=== PATIENT | female | born 1965 | race Hispanic/Latino ===

== ENCOUNTER 2017-01-01 18:55 | Emergency (ER) | payer MEDICAID ==
[2017-01-01 18:56] VITALS: BMI 23.0
[2017-01-01 19:04] VITALS: RESP 16; TEMP 98.1
--- NOTE | 2017-01-01 20:09 | ED PDOC ---
Arrival/HPI - General Chief Complaint: Allergic Reaction Time Seen by Provider: 01/01/17 19:06 Historian: Patient - History of Present Illness Narrative History of Present Illness (Text): 01/01/17 20:06 51yo female with PMHx of hypertension who present with complaint of pruritic rash. States she noticed rash this evening. Took 2tabs of Benadryl at 1700. States she is usually allergic to mosquito bite and not sure if she was bitten by mosquito. denies SOB, tongue swelling, chest pain, any inciting factors. Past Medical History - Provider Review Nursing Documentation Reviewed: Yes - Infectious Disease Hx of Infectious Diseases: None - Tetanus Immunization Tetanus Immunization: Unknown - Reproductive Menopause: Yes - Past Medical History Past Medical History: No Previous - Cardiac Hx Hypertension: Yes - Pulmonary Hx Respiratory Disorders: Yes Other/Comment: FORMER SMOKER - Neurological Hx Neurological Disorder: No - HEENT Hx HEENT Disorder: No - Renal Hx Renal Disorder: No - Endocrine/Metabolic Hx Endocrine Disorders: No - Hematological/Oncological Hx Blood Disorders: No - Integumentary Hx Dermatological Disorder: No - Musculoskeletal/Rheumatological Hx Musculoskeletal Disorders: No - Gastrointestinal Hx Gastrointestinal Disorders: No - Genitourinary/Gynecological Hx Genitourinary Disorders: No - Psychiatric Hx Depression: Yes Hx Substance Use: No - Past Surgical History Past Surgical History: No Previous - Surgical History Other/Comment: LAPAROSCOPY - Anesthesia Hx Anesthesia: No - Suicidal Assessment Feels Threatened In Home Enviroment: No Family/Social History - Physician Review Nursing Documentation Reviewed: Yes Family/Social History: Unknown Family HX Smoking Status: Former Smoker Hx Alcohol Use: Yes Hx Substance Use: No Hx Substance Use Treatment: No Allergies/Home Meds Allergies/Adverse Reactions: Allergies cefuroxime [From Ceftin] Allergy (Verified 01/01/17 19:00) ANAPHYLAXIS fluconazole [From Diflucan] Allergy (Verified 01/01/17 19:00) RASH Penicillins Allergy (Verified 01/01/17 19:00) RASH Review of Systems - Physician Review All systems were reviewed & negative as marked: Yes - Review of Systems Constitutional: Normal Eyes: Normal ENT: Normal Respiratory: Normal Cardiovascular: Normal Gastrointestinal: Normal Genitourinary Female: Normal Musculoskeletal: Normal Skin: Rash, Pruritis Neurological: Normal Endocrine: Normal Hemo/Lymphatic: Normal Psychiatric: Normal Physical Exam Vital Signs Reviewed: Yes Vital Signs Temp Pulse Resp BP Pulse Ox 01/01/17 22:22 80 16 123/80 100 01/01/17 20:50 78 16 124/80 100 01/01/17 19:00 98.1 F 82 16 122/84 95 Temperature: Afebrile Blood Pressure: Normal Pulse: Regular Respiratory Rate: Normal Appearance: Positive for: Well-Appearing, Non-Toxic, Comfortable Pain Distress: None Mental Status: Positive for: Alert and Oriented X 3 - Systems Exam Head: Present: Atraumatic, Normocephalic Pupils: Present: PERRL Extroacular Muscles: Present: EOMI Conjunctiva: Present: Normal Mouth: Present: Moist Mucous Membranes. No: Drooling Pharnyx: No: Strider Neck: Present: Normal Range of Motion Respiratory/Chest: Present: Clear to Auscultation, Good Air Exchange. No: Respiratory Distress, Accessory Muscle Use Cardiovascular: Present: Regular Rate and Rhythm, Normal S1, S2. No: Murmurs Abdomen: Present: Normal Bowel Sounds. No: Tenderness, Distention, Peritoneal Signs Back: Present: Normal Inspection Upper Extremity: Present: Normal Inspection. No: Cyanosis, Edema Lower Extremity: Present: Normal Inspection. No: Edema Neurological: Present: GCS=15, CN II-XII Intact, Speech Normal Skin: Present: Warm, Dry, Rashes (Erythematous hives noted on b/ll inner proximal thighs and b/l herrera hand), Normal Color Psychiatric: Present: Alert, Oriented x 3, Normal Insight, Normal Concentration Medical Decision Making ED Course and Treatment: 01/02/17 01:44 Pt's rash improved while in ED. No drooling. No stridor noted in ED. She was DC home with Prednisone and pepcid. Advised to continue with her Benadryl. Referred to a Hot Dip Tinning Supervisor. TRT ED for any new or worsening symptoms. - Medication Orders Current Medication Orders: Discontinued Medications Diphenhydramine HCl (Benadryl) 25 mg IM STAT STA Stop: 01/01/17 21:07 Last Admin: 01/01/17 21:16 Dose: 25 mg Famotidine (Pepcid) 40 mg PO STAT STA Stop: 01/01/17 19:18 Last Admin: 01/01/17 19:34 Dose: 40 mg Prednisone (Prednisone Tab) 60 mg PO STAT ONE Stop: 01/01/17 19:19 Last Admin: 01/01/17 19:35 Dose: 60 mg Disposition/Present on Arrival - Present on Arrival Any Indicators Present on Arrival: No History of DVT/PE: No History of Uncontrolled Diabetes: No Urinary Catheter: No History of Decub. Ulcer: No History Surgical Site Infection Following: None - Disposition Have Diagnosis and Disposition been Completed?: Yes Diagnosis: Allergic reaction Disposition: HOME/ ROUTINE Disposition Time: 21:30 Patient Plan: Discharge Condition: STABLE Discharge Instructions (ExitCare): Urticaria (ED) Additional Instructions: Follow up with your Doctor/Hot Dip Tinning Supervisor Return to ED for any new or worsening symptoms Prescriptions: Famotidine [Pepcid] 40 mg PO DAILY #10 tab predniSONE [Prednisone] 20 mg PO BID #6 tab Referrals: Maryan Foss MD [Primary Care Provider] - Follow up with primary Ritesh Rene MD [Staff Provider] - Follow up with primary
[2017-01-01] MEDS ORDERED: DiphenhydrAMINE 50 mg/ml Inj IM STA (21:06)
[2017-01-01 21:37] VITALS: O2SAT 100
[2017-01-01 22:22] VITALS: BP 123/80; PULSE 80
== END 2017-01-01 22:22 | disposition home or self-care (01) ==
LOC: ED 18:55
DX: T78.40XA Allergy, unspecified, initial encounter (principal); X58.XXXA Exposure to other specified factors, initial encounter
CPT/HCPCS: 96372; 99285; J1200

== ENCOUNTER 2017-01-06 14:15 | Emergency (ER) | payer MEDICAID ==
[2017-01-06 14:26] VITALS: TEMP 97.9; BMI 24.0
--- NOTE | 2017-01-06 14:49 | ED PDOC ---
Arrival/HPI <Kathya Talley - Last Filed: 01/06/17 19:13> - General Historian: Patient - History of Present Illness Time/Duration: Other (24 hours) Context: Home <Monty Calabrese - Last Filed: 01/08/17 13:40> - General Chief Complaint: Foreign Body Time Seen by Provider: 01/06/17 14:37 - History of Present Illness Narrative History of Present Illness (Text): 01/06/17 14:48 This 51 yo female with pmh GERD, HTN, presents to this ED c/o a foreign body sensation in her throat x 24 hours. Patient stated she was eating a "bunch" of peanuts, when she felt it got stuck in her throat. Patient has tried to pass it with water, bread, etc. However, she continues with symptoms. Patient tolerated PO fluids. Patient also noted a chest discomfort, and mild SIERRA because of the symptoms. Denies sob, drooling, wheezing, fever, abdominal pain, urinary symptoms or trauma. (Monty Calabrese) Past Medical History - Provider Review Nursing Documentation Reviewed: Yes - Infectious Disease Hx of Infectious Diseases: None - Tetanus Immunization Tetanus Immunization: Unknown - Reproductive Menopause: Yes - Past Medical History Past Medical History: No Previous - Cardiac Hx Hypertension: Yes - Pulmonary Hx Respiratory Disorders: Yes Other/Comment: FORMER SMOKER - Neurological Hx Neurological Disorder: No - HEENT Hx HEENT Disorder: No - Renal Hx Renal Disorder: No - Endocrine/Metabolic Hx Endocrine Disorders: No - Hematological/Oncological Hx Blood Disorders: No - Integumentary Hx Dermatological Disorder: No - Musculoskeletal/Rheumatological Hx Musculoskeletal Disorders: No - Gastrointestinal Hx Gastrointestinal Disorders: No - Genitourinary/Gynecological Hx Genitourinary Disorders: No - Psychiatric Hx Depression: Yes Hx Substance Use: No - Past Surgical History Past Surgical History: No Previous - Surgical History Other/Comment: LAPAROSCOPY - Anesthesia Hx Anesthesia: No Hx Anesthesia Reactions: No Hx Malignant Hyperthermia: No - Suicidal Assessment Feels Threatened In Home Enviroment: No <Monty Calabrese - Last Filed: 01/08/17 13:40> Family/Social History - Physician Review Nursing Documentation Reviewed: Yes Family/Social History: No Known Family HX Smoking Status: Former Smoker Hx Alcohol Use: Yes Frequency of alcohol use: Socially Hx Substance Use: No Hx Substance Use Treatment: No <Calabrese,Nahim P - Last Filed: 01/08/17 13:40> Allergies/Home Meds <Kathya Talley - Last Filed: 01/06/17 19:13> <Monty Calabrese P - Last Filed: 01/08/17 13:40> Allergies/Adverse Reactions: Allergies cefuroxime [From Ceftin] Allergy (Verified 01/01/17 19:00) ANAPHYLAXIS fluconazole [From Diflucan] Allergy (Verified 01/01/17 19:00) RASH levofloxacin [From Levaquin] Allergy (Verified 01/06/17 14:30) RASH Penicillins Allergy (Verified 01/01/17 19:00) RASH Review of Systems - Review of Systems Constitutional: Normal. absent: Fatigue, Weight Change, Fevers Eyes: Normal ENT: Other (See HPI) Respiratory: Normal. absent: SOB, Cough Cardiovascular: Normal. absent: Chest Pain Gastrointestinal: Normal. absent: Abdominal Pain, Nausea, Vomiting Genitourinary Female: Normal Musculoskeletal: Normal Skin: Normal Neurological: Normal. absent: Headache, Dizziness Endocrine: Normal Hemo/Lymphatic: Normal Psychiatric: Normal <Monty Calabrese P - Last Filed: 01/08/17 13:40> Physical Exam Temperature: Afebrile Blood Pressure: Normal Pulse: Regular Respiratory Rate: Normal Appearance: Positive for: Well-Appearing, Non-Toxic, Comfortable Pain Distress: None Mental Status: Positive for: Alert and Oriented X 3 - Systems Exam Head: Present: Atraumatic, Normocephalic Pupils: Present: PERRL Extroacular Muscles: Present: EOMI Conjunctiva: Present: Normal Mouth: Present: Moist Mucous Membranes Pharnyx: Present: Normal, Other (No FB). No: ERYTHEMA, EXUDATE, TONSILS ENLARGED, Peritonsilar Swelling, Uvular Deviation, Muffled/Hoarse Voice, Strider , Soft Palate/Uvular Edema Nose (External): Present: Atraumatic Nose (Internal): Present: Normal Inspection Neck: Present: Normal Range of Motion. No: Meningeal Signs, Lymphadenopathy Respiratory/Chest: Present: Clear to Auscultation, Good Air Exchange. No: Respiratory Distress, Accessory Muscle Use Cardiovascular: Present: Regular Rate and Rhythm, Normal S1, S2. No: Murmurs Abdomen: Present: Normal Bowel Sounds. No: Tenderness, Distention, Peritoneal Signs Back: Present: Normal Inspection Upper Extremity: Present: Normal Inspection, Normal ROM, NORMAL PULSES, Neurovascularly Intact, Capillary Refill < 2s. No: Cyanosis, Edema Lower Extremity: Present: Normal Inspection, NORMAL PULSES, Normal ROM, Neurovascularly Intact, Capillary Refill < 2 s. No: Edema Neurological: Present: GCS=15, CN II-XII Intact, Speech Normal, Motor Func Grossly Intact, Normal Sensory Function, Normal Cerebellar Funct, Gait Normal, Memory Normal Skin: Present: Warm, Dry, Normal Color. No: Rashes Psychiatric: Present: Alert, Oriented x 3, Normal Insight, Normal Concentration <Monty Calabrese P - Last Filed: 01/08/17 13:40> Vital Signs Temp Pulse Resp BP Pulse Ox 01/06/17 19:37 81 17 145/92 H 98 01/06/17 18:00 78 18 143/91 H 98 01/06/17 16:16 70 18 128/75 99 01/06/17 14:16 97.9 F 67 18 130/85 97 Medical Decision Making <Kathya Talley - Last Filed: 01/06/17 19:13> Re-evaluation Time: 19:23 Reassessment Condition: Re-examined, Improved <Monty Calabrese P - Last Filed: 01/08/17 13:40> ED Course and Treatment: 01/06/17 19:15 Patient seen and evaluated with PA. I examined patient. She has no chest pain or shortness of breath with exertion. No drooling. No angioedema. No stridor or wheezing or pooling of oral secretions. She ate pizza and potatoes since last night with no difficulty, no difficulty swallowing solids or liquids. CT findings reviewed with patient. She feels better after IV pepcid. Discussed with her limitations of imaging studies and that foreign body cannot be excluded however patient is tolerating po. We consulted on-call gastroenterology and patient has been seen and evaluated by GI, imaging studies reviewed, outpatient follow-up arranged. (Kathya Talley) 01/06/17 19:21 Dr. Ghosh GI doctor came to evaluate patient. He recommended Omeprazole 40 mg daily, and liquid diet for 48 hours. He agrees with d/c patient home and to call his office if symptoms worsen. (Calabrese,Nahim P) - Lab Interpretations Lab Results: 01/06/17 15:00 01/06/17 15:00 Lab Results 01/06/17 15:00: Sodium 137, Potassium 3.4 L, Chloride 103, Carbon Dioxide 24, Anion Gap 13, BUN 13, Creatinine 0.6, Est GFR ( Amer) > 60, Est GFR (Non- Af Amer) > 60, Random Glucose 91, Calcium 10.1, Total Bilirubin 0.4, AST 20, ALT 31, Alkaline Phosphatase 82, Lactate Dehydrogenase 432, Total Creatine Kinase 49, Troponin I < 0.01, Total Protein 7.5, Albumin 4.5, Globulin 3.0, Albumin/Globulin Ratio 1.5 01/06/17 15:00: WBC 9.0, RBC 4.51, Hgb 13.7, Hct 39.1, MCV 86.7, MCH 30.4, MCHC 35.0, RDW 12.9, Plt Count 310, MPV 8.9, Gran % 58.2, Lymph % (Auto) 30.6, Piatt % (Auto) 8.1 H, Eos % (Auto) 2.9, Baso % (Auto) 0.2, Gran # 5.24, Lymph # 2.8, Piatt # 0.7 H, Eos # 0.3, Baso # 0.02 - RAD Interpretation Narrative RAD Interpretations (Text): PROCEDURE: CT NECK WITHOUT CONTRAST HISTORY: neck discomfort r/o FB COMPARISON: None. TECHNIQUE: CT of the neck without intravenous contrast. Coronal and sagittal reformats generated. Radiation dose: DLP 316.01 mGy-cm This CT exam was performed using one or more of the following dose reduction techniques: Automated exposure control, adjustment of the mA and/or kV according to patient size, and/or use of iterative reconstruction technique. FINDINGS: NASOPHARYNX: Unremarkable. SUPRAHYOID NECK: Unremarkable oropharynx, oral cavity, parapharyngeal space and retropharyngeal space. INFRAHYOID NECK: Unremarkable larynx, hypopharynx, and supraglottic space. Vocal cords intact. MASS: None. GLANDS: Parotid and submandibular glands unremarkable. Normal size thyroid gland, without nodule. LYMPH NODES: Normal. No lymphadenopathy. CERVICAL SPINE: No fracture or focal lesion. OTHER FINDINGS: Diffuse esophageal thickening. No focal lesions identified. Findings may represent esophagitis. IMPRESSION: No radiopaque/visualized foreign body. CT findings suggestive of esophagitis. Chest x-rays: NAD (Monty Calabrese P) Radiology Orders: 01/06/17 14:49 NECK SOFT TISSUE W/O CONTRAST [CT] Stat 01/06/17 15:01 CHEST PORTABLE [RAD] Stat - Medication Orders Current Medication Orders: Discontinued Medications Famotidine (Pepcid) 20 mg IVP STAT STA Stop: 01/06/17 17:26 Last Admin: 01/06/17 17:43 Dose: 20 mg - PA / QUALITY OFFICER / Resident Statement / has reviewed & agrees with the documentation as recorded. / has examined the patient and agrees with the treatment plan. <Kathya Talley - Last Filed: 01/06/17 19:13> Disposition/Present on Arrival <Kathya Talley - Last Filed: 01/06/17 19:13> - Present on Arrival Any Indicators Present on Arrival: No History of DVT/PE: No History of Uncontrolled Diabetes: No Urinary Catheter: No History of Decub. Ulcer: No History Surgical Site Infection Following: None - Disposition Have Diagnosis and Disposition been Completed?: Yes Disposition Time: 19:23 Patient Plan: Discharge <CalabreseMonty garcia P - Last Filed: 01/08/17 13:40> - Disposition Diagnosis: Esophagitis, acute, Foreign body sensation in throat Disposition: HOME/ ROUTINE Condition: GOOD Discharge Instructions (ExitCare): Full Liquid Diet (GEN), Esophagitis (ED) Additional Instructions: Call private doctor for follow up visit in 1-2 days. TAKE MEDICATION INSTRUCTED. Call Dr. Ghosh if symptoms worsen, or return to emergency for revaluation Prescriptions: Omeprazole 40 mg PO DAILY #30 capsule. Referrals: Maryan Foss MD [Primary Care Provider] - Follow up with primary Liz Ghosh MD [Medical Doctor] - Follow up with primary Forms: WORK NOTE
[2017-01-06 15:10] LABS: ADD MANUAL DIFF? NO
[2017-01-06 15:11] LABS: BASO # 0.02 K/mm3 (0.0-2.0); BASO % 0.2 % (0.0-3.0); EOS # 0.3 (0.0-0.7); EOS % 2.9 % (1.5-5.0); GRAN # 5.24 (1.4-6.5); GRAN % 58.2 % (50.0-68.0); HEMATOCRIT 39.1 % (36.0-48.0); LYMPH # 2.8 (1.2-3.4); LYMPH % 30.6 % (22.0-35.0); MEAN CELL VOLUME 86.7 fL (80.0-105.0); MEAN CORPUSCULAR HEMOGLOBIN 30.4 pg (25.0-35.0); MEAN PLATELET VOLUME 8.9 fl (7.0-11.0); MONO # 0.7 (0.1-0.6); MONO % 8.1 % (1.0-6.0); PLATELET COUNT 310 10^3/uL (120.0-450.0); RED CELL DISTRIBUTION WIDTH 12.9 % (11.5-14.5)
[2017-01-06 15:34] LABS: ALB/GLOB RATIO 1.5 (1.1-1.8); ALKALINE PHOSPHATASE 82 U/L (38-133); ALT/SGPT 31 U/L (7-56); AST/SGOT 20 U/L (15-39); BILIRUBIN,TOTAL 0.4 mg/dL (0.2-1.3); BLOOD UREA NITROGEN 13 mg/dL (7-21); CALCIUM 10.1 mg/dL (8.4-10.5); CARBON DIOXIDE 24 mmol/L (21-33); CHLORIDE 103 mmol/L (98-107); GFR AFRICAN-AMERICAN > 60; GLUCOSE,RANDOM 91 mg/dL (70-110); POTASSIUM 3.4 mmol/L (3.6-5.0); SODIUM 137 mmol/L (132-148); TOTAL PROTEIN 7.5 g/dL (5.8-8.3)
--- NOTE | 2017-01-06 15:42 | RAD ---
HISTORY: chest discomfort COMPARISON: No prior. FINDINGS: LUNGS: No active pulmonary disease. PLEURA: No significant pleural effusion identified, no pneumothorax apparent. CARDIOVASCULAR: Normal. OSSEOUS STRUCTURES: No significant abnormalities. VISUALIZED UPPER ABDOMEN: Normal. OTHER FINDINGS: None. IMPRESSION: No active disease.
[2017-01-06 15:45] LABS: TROPONIN I < 0.01 ng/mL
--- NOTE | 2017-01-06 17:09 | CT ---
PROCEDURE: CT NECK WITHOUT CONTRAST HISTORY: neck discomfort r/o FB COMPARISON: None. TECHNIQUE: CT of the neck without intravenous contrast. Coronal and sagittal reformats generated. Radiation dose: DLP 316.01 mGy-cm This CT exam was performed using one or more of the following dose reduction techniques: Automated exposure control, adjustment of the mA and/or kV according to patient size, and/or use of iterative reconstruction technique. FINDINGS: NASOPHARYNX: Unremarkable. SUPRAHYOID NECK: Unremarkable oropharynx, oral cavity, parapharyngeal space and retropharyngeal space. INFRAHYOID NECK: Unremarkable larynx, hypopharynx, and supraglottic space. Vocal cords intact. MASS: None. GLANDS: Parotid and submandibular glands unremarkable. Normal size thyroid gland, without nodule. LYMPH NODES: Normal. No lymphadenopathy. CERVICAL SPINE: No fracture or focal lesion. OTHER FINDINGS: Diffuse esophageal thickening. No focal lesions identified. Findings may represent esophagitis. IMPRESSION: No radiopaque/visualized foreign body. CT findings suggestive of esophagitis.
[2017-01-06 18:31] VITALS: O2SAT 98
[2017-01-06 19:38] VITALS: BP 145/92; PULSE 81; RESP 17
--- NOTE | 2017-01-07 09:02 | CON ---
DATE: 01/06/2017 HISTORY OF PRESENT ILLNESS: This patient was seen and evaluated earlier. This 51-year-old patient w as eating a bunch of nuts yesterday, had a sensation of got stuck in the throat. She was able to charles ar it up. She was drinking water, now she is able to drink water, but still has the sensation of belkis ething in the throat area, is tolerating the p.o. fluid well. She came to the ER because of the conc nagi about the persistent discomfort in the throat area. She is concerned about foreign body impactio n. She did have a similar episode about a few years ago ____. PAST MEDICAL HISTORY: Significant for hypertension. SOCIAL HISTORY: Social alcohol use, denies any other substance abuse. Smoking, ex-smoker. REVIEW OF SYSTEMS: Positive as above. Other systems reviewed. PHYSICAL EXAMINATION: GENERAL: The patient is lying on the bed, not in acute distress. VITAL SIGNS: Temperature is ____ , pulse 81, blood pressure is 145/92, respirations is 17, O2 satura tion is 98%. HEENT: Atraumatic, anicteric. NECK: Supple. HEART: S1, S2 heard. LUNGS: Bilateral air entry present. ABDOMEN: Soft. There is no mass palpable. No tenderness. EXTREMITIES: No edema, no cyanosis. NEUROLOGIC: Alert, oriented. Moves all the extremities. LABORATORY DATA: CBC is essentially unremarkable. Chemistry is also essentially unremarkable except potassium was 3.4, being supplemented. IMPRESSION: This 51-year-old patient presented to the Emergency Room with discomfort in the throat. The patient had a feeling of choking feeding when she was eating nuts before, yesterday. The patien t is now able to drink water. History of foreign body impaction in the past removed, by endoscopy in the past. RECOMMEND: The patient probably passed the food impaction. Has some irritation in the throat. 1. Continue the PPI, omeprazole about 40 mg daily. 2. Liquid diet for 48 hours. 3. If there is further worsening of the symptoms, patient was advised to call. The patient will be scheduled for an outpatient endoscopic evaluation. The patient meanwhile, was advised to take soft f oods, chew it well, or pureed diet after 2 days. Thank you very much for allowing us to participate in the care of the patient. Liz Ghosh MD cc: [phone] TT: 01/07/2017 09:00:58 Confirmation # [id number] Dictation # [id number]
--- NOTE | 2017-01-07 16:01 | CARD ---
APPROVED REPORT EKG Measurement Heart [id number] <Conclusion> Normal sinus rhythm Normal ECG
== END 2017-01-06 19:40 | disposition home or self-care (01) ==
LOC: ED 14:15
DX: K20.9 Esophagitis, unspecified (principal); R09.89 Other specified symptoms and signs involving the circulatory and respiratory systems